=== PATIENT | male | born 1955 | race Caucasian/White ===

== ENCOUNTER 2017-03-15 22:04 | Emergency (ER) | payer MEDICARE ==
[2017-03-15 22:35] LABS: BASOPHIL 1.2 % (0-2); EOSINOPHIL 2.3 % (0-5); HCT 49.9 % (42.0-52.0); HGB 17.5 g/dl (13.2-18.0); LYMPHOCYTE 53.4 % (15-48); MCH 33.8 pg (25.0-31.0); MCHC 35.1 g/dL (32.0-36.0); MCV 96.3 fL (78.0-100.0); MONOCYTE 6.3 % (0-12); MPV 9.2 fL (6.0-9.5); NEUTROPHIL 36.8 % (41-80); PLT 281 K/uL (150-400); RBC 5.18 M/uL (4.70-6.00); RDW 16.9 % (11.5-14.0); WBC 8.7 K/uL (4.0-10.5)
[2017-03-15 23:07] LABS: INR 1.04 (0.9-1.2); PROTHROMBIN TIME 13.2 SECONDS (11.7-14.0); PTT 25.2 SECONDS (23.2-31.4)
[2017-03-15 23:14] LABS: CREATININE 0.8 mg/dL (0.7-1.2); POTASSIUM 3.6 mmol/L (3.5-5.1)
== END 2017-03-16 08:16 | disposition home or self-care (01) ==
LOC: FER 22:04
PROVIDERS: Emergency Medicine Emergency Medical Services
DX: S09.90XA Unspecified injury of head, initial encounter (principal); S00.31XA Abrasion of nose, initial encounter; F10.129 Alcohol abuse with intoxication, unspecified; M54.9 Dorsalgia, unspecified; I25.2 Old myocardial infarction; Z86.73 Personal history of transient ischemic attack (TIA), and cerebral infarction without residual deficits; Z23 Encounter for immunization; Z88.0 Allergy status to penicillin; Z88.2 Allergy status to sulfonamides; Z79.82 Long term (current) use of aspirin; Z79.02 Long term (current) use of antithrombotics/antiplatelets; Z79.899 Other long term (current) drug therapy; Y90.8 Blood alcohol level of 240 mg/100 ml or more; W19.XXXA Unspecified fall, initial encounter; Y92.410 Unspecified street and highway as the place of occurrence of the external cause
CPT/HCPCS: 36415; 70450; 70486; 72100; 72125; 80048; 85025; 85610; 85730; 90471; 90715; G0480